=== PATIENT | female | born 1945 | race Caucasian/White ===

== ENCOUNTER 2022-09-23 07:54 | Outpatient (CLI) | payer MEDICARE, BC, SELFPAY ==
[2022-09-23 08:45] LABS: Chloride* 111 mmol/L (96-114); Sodium* 143 mmol/L (135-149)
[2022-09-23 08:46] LABS: Potassium* 4.6 mmol/L (3.6-5.1)
[2022-09-23 08:47] LABS: Cholesterol* 148 mg/dL (90-199)
[2022-09-23 08:48] LABS: Alanine Aminotransferase* 15 U/L (4-35); Alkaline Phosphatase* 72 U/L (40-150); Aspartate Amino Transferase* 22 U/L (12-35); Bilirubin Total* 0.7 mg/dL (0.1-1.5); Blood Urea Nitrogen* 13 mg/dL (7-30); Carbon Dioxide* 28 mmol/L (20-32); Creatinine* 0.7 mg/dL (0.5-1.5); Estimated Glomerular Filt Rate 89 ml/min; Glucose* 92 mg/dL (60-115); Total Protein* 6.9 g/dL (6.0-8.3); Triglycerides* 109 mg/dL (40-149)
[2022-09-23 08:49] LABS: Calcium* 8.7 mg/dL (8.4-10.6); HDL Cholesterol* 65 mg/dL (>=50); LDL Cholesterol Calculated 61 mg/dL (<100)
[2022-09-25 21:48] LABS: Vitamin D 25 Hydroxy* 60 ng/mL (30-80)
== END 2022-09-23 07:55 | disposition home or self-care (01) ==
LOC: NFLDREF 07:54
PROVIDERS: PCP Family Medicine; Visit Provider Family Medicine
DX: Z00.00 Encounter for general adult medical examination without abnormal findings (principal); E78.5 Hyperlipidemia, unspecified; E66.9 Obesity, unspecified; I25.10 Atherosclerotic heart disease of native coronary artery without angina pectoris; M81.0 Age-related osteoporosis without current pathological fracture
CPT/HCPCS: 80053; 80061; 82306

== ENCOUNTER 2022-11-12 11:17 | Outpatient (CLI) | payer MEDICARE, BC, SELFPAY ==
--- NOTE | 2022-11-12 11:30 | CRLHL7_ITS ---
For Patients: As a result of the Cures Act, medical imaging exams and procedure reports are released immediately into your electronic medical record. You may view this report before your referring provider. If you have questions, please contact your health care provider. BILATERAL SCREENING MAMMOGRAM WITH COMPUTER-AIDED DETECTION AND TOMOSYNTHESIS TECHNIQUE: CC and MLO views were obtained. These mammographic images have been obtained using full-field digital technique. These mammographic images were interpreted with the benefit of computer-aided detection. Breast tomosynthesis was used in this interpretation. COMPARISON FILM: 11/06/21, 10/03/20, 09/23/19. FINDINGS: There are scattered areas of fibroglandular density. IMPRESSION: There is no radiographic evidence for malignancy. ASSESSMENT: BI-RADS Category 1: Negative RECOMMENDATION: Routine screening mammogram in 1 year. A lay language report of this examination will be provided to the patient. VISHNU SANCHEZ M.D. Diagnostic Radiologist [email or web address] MOSHE/evelyn Transcribed: 11/12/2022, 2:[address]/Dictated by: Vishnu Sanchez MD @ 11/12/2022 12:43:00 PM (Electronically Signed)
== END 2022-11-12 11:18 | disposition home or self-care (01) ==
LOC: MAMMO 11:18
PROVIDERS: PCP Family Medicine; Visit Provider Family Medicine
DX: Z12.31 Encounter for screening mammogram for malignant neoplasm of breast (principal)
CPT/HCPCS: 77063; 77067

== ENCOUNTER 2022-12-24 08:03 | Outpatient (CLI) | payer MEDICARE, BC, SELFPAY | END 2022-12-24 08:04 | disposition home or self-care (01) | LOC: NFLDREF 21:37 | PROVIDERS: PCP Family Medicine; Referring Provider Family Medicine; Visit Provider Family Medicine | DX: I25.10 Atherosclerotic heart disease of native coronary artery without angina pectoris (principal); Z79.1 Long term (current) use of non-steroidal anti-inflammatories (NSAID) | CPT/HCPCS: 80053 ==

== ENCOUNTER 2023-03-26 12:28 | Outpatient (CLI) | payer MEDICARE, BC, SELFPAY | END 2023-03-26 12:29 | disposition home or self-care (01) | LOC: RAD 12:29 | PROVIDERS: PCP Family Medicine; Visit Provider Internal Medicine Cardiovascular Disease | DX: I25.10 Atherosclerotic heart disease of native coronary artery without angina pectoris (principal); I51.7 Cardiomegaly; I35.1 Nonrheumatic aortic (valve) insufficiency; I34.0 Nonrheumatic mitral (valve) insufficiency; I07.1 Rheumatic tricuspid insufficiency | CPT/HCPCS: 93306 ==

== ENCOUNTER 2023-10-10 07:55 | Outpatient (CLI) | payer MEDICARE, BC, SELFPAY ==
--- OUTSIDE RECORDS SUMMARY | 2023-10-10 12:23 | XMS_ITS | Clinical Summary ---
Author Name Unknown Organization [facility] Address [place], [place] [address] Care Team Providers Care Medical Supervisor Name Role Phone Oxana Johnson MD Primary Care Provider + Allergies Active Allergy Reactions Criticality Noted Date Comments Adhesive Tape-Silicones Rash 10/07/2018 Mold *Unknown 10/13/2018 Medications Medication Sig Dispensed Refills Start Date End Date Status metoprolol tartrate (LOPRESSOR) 25 mg tablet Take 25 mg by mouth once daily. 0 09/15/2018 Active rosuvastatin (CRESTOR) 10 mg tablet Take 10 mg by mouth once daily. 0 09/15/2018 Active aspirin (ECOTRIN) 81 mg enteric coated tablet Take 81 mg by mouth once daily with a meal. 0 Active nitroglycerin (NITROSTAT) 0.4 mg sublingual tabletIndications:Altaf nary artery disease, angina presence unspecified, unspecified vessel or lesion type, unspecified whether chinik or transplanted heart Place 1 tablet under the tongue every 5 minutes if needed. 25 tablet 0 10/07/2018 Active coenzyme q10 100 mg capIndications:Hyperli pidemia, unspecified hyperlipidemia type Take 1 capsule by mouth 2 times daily. Recommend Qunol brand 0 10/08/2018 Active isosorbide mononitrate (IMDUR) 30 mg extended release tablet 24 HourIndications:Palafox ry artery disease TAKE 1/2 TABLET (15 MG) BY MOUTH ONCE DAILY. 45 Tablet 2 07/09/2022 Active Active Problems Problem Noted Date Diagnosed Date Nasal congestion 04/18/2023 Chronic back pain 04/18/2023 Obesity (BMI 30.0-34.9) 03/17/2020 Mixed hyperlipidemia 01/22/2019 Ulcerative colitis 08/09/2010 Overview: Overview: Ulcerative colitis NOS Nonrheumatic aortic valve insufficiency Non-rheumatic mitral regurgitation Chest pain Abnormal cardiovascular stress test Coronary artery disease Immunizations Name Administration Dates Next Due COVID-19 vaccine ([employer] 30mcg/0.3mL) PF, MDV 10/19/2020,09/28/2020 Influenza, High-dose Inactivated 07/29/2018,06/25,10/02/2016 Influenza, IIV3 (Age 6-35 mos) 06/22/2013 Influenza, IIV3 (Age >=3 years) 06/05/2010 Pneumococcal Poly,23-Valent (Pneumovax) 06/22/20 13 Pneumococcal conj 13-Valent (Prevnar 13) 017 Social History Tobacco Use Types Packs/Day Years Used Date Smoking Tobacco: Former Smokeless Tobacco: Never Tobacco Cessation:Counseling Given: Yes Alcohol Use Standard Drinks/Week Comments Yes 2 (1 standard drink = 0.6 oz pur e alcohol) PHQ-2 Answer Date Recorded PHQ-2 Score 0 10/24/2018 Social Connections Answer Date Recorded Frequency of Communication with Friends and Fami ly Not on file 08/25/2021 Financial Resource Strain Answer Date R ecorded Difficulty of Paying Living Expenses Not on file 08/25/2021 Difficulty of Paying Living Expenses Not on file 08/25/2021 Sex and Gender Information Value Date Recorded Sex Assigned at Not on file Gender Identity Not on file Sexual Orientation Not on file Obstetrics History Last Filed Vital Signs Vital Sign Reading Time Taken Comments Blood Pressure 100/60 03/17/2020 9:47 AM CDT Pulse 60 03/17/2020 9:47 AM CDT Temperature 36.4 ??C (97.5 ??F) 03/17/2020 9:47 AM CD T Respiratory Rate 12 10/08/2018 8:09 AM TALK SHOW HOST Oxygen Saturation 99% 03/17/2020 9:47 AM CDT Inhaled Oxygen Concentration - - Weight 80.3 kg (177 lb 0.5 oz) 03/17/2020 9:47 A M CDT Height 161 cm (5' 3.39) 03/17/2020 9:47 AM CDT Body Mass Index 30.98 03/17/2020 9:47 AM CDT Plan of Treatment Health Maintenance Due Date Last Done Comments Tdap 1956 Hepatitis C screening for ag e 18-79 1963 Tetanus booster 1965 Zoster (shingles) series for age 50+ (1 of 2) 1995 DEXA/DXA scan for age 65+ 2010 Medicare Wellness for age 65+ 2010 Depression screening for age 12+ 10/16/2019 10/16/19 19, 10/13/2018 BMI (ht and wt on same day) for age 18+ 03/17/2021 03/17/2020 COVID-19 vaccine series ( season) 2023 08/08/2021, 10/19/2020, 09/28/2020 Influenza for age 65+ 04/25/2023 07/29/2018 , 07/11/2017, 10/02/2016, Additional history exists Pneumococcal series for age 65+ Completed 7, 06/22/2013 Advance Directives Latest Code Status on File Code Status Date Activated Date Inactivated Comments Full Code 10/07/2018 11:26 AM 10/08/2018 5:12 PM Care Teams Medical Supervisor Relationship Specialty Start Date End Date Oxana Johnson MD [address] [place] [id number] PCP - General Family Practice 10/02/18
== END 2023-10-10 07:56 | disposition home or self-care (01) ==
LOC: NFLDREF 12:22
PROVIDERS: PCP Family Medicine; Referring Provider Family Medicine; Visit Provider Family Medicine
DX: E78.5 Hyperlipidemia, unspecified (principal); I10 Essential (primary) hypertension; I25.10 Atherosclerotic heart disease of native coronary artery without angina pectoris; M19.90 Unspecified osteoarthritis, unspecified site; Z79.1 Long term (current) use of non-steroidal anti-inflammatories (NSAID)
CPT/HCPCS: 80053; 80061

== ENCOUNTER 2023-11-14 09:47 | Outpatient (CLI) | payer MEDICARE, BC, SELFPAY ==
--- NOTE | 2023-11-14 10:15 | MM_ITS ---
Patient: EVER KRIS Facility:?[facility] Patient ID:?[id number] Site Patient ID:?[id number]. Site :?[id number] Study:?XRay-Breast Bilateral 3D-11/14/2023 10:32:05 AM Ordering Physician:Carl Final Report: BILATERAL SCREENING MAMMOGRAM WITH COMPUTER-AIDED DETECTION AND TOMOSYNTHESIS TECHNIQUE: CC and MLO views were obtained. These mammographic images have been obtained using full-field digital technique. These mammographic images were interpreted with the benefit of computer-aided detection. Breast Tomosynthesis was used in this interpretation. COMPARISON FILM: 11/12/2022, 11/06/2021, 10/03/2020. FINDINGS: There are scattered areas of fibroglandular density. IMPRESSION: There is no radiographic evidence for malignancy. ASSESSMENT: BI-RADS Category 2: Benign RECOMMENDATION: Routine screening mammogram in 1 year. A lay language report of this examination will be provided to the patient. Vishnu Power M.D. Diagnostic Radiologist [email or web address] DSM/sp R& Transcribed: 5:43 p.m. SP/Dictated by: Vishnu Power MD @ 11/14/2023 11:08:00 AM Signed by:?Vishnu Power MD @11/14/2023 8:19:14 PM (Electronic Signature)
== END 2023-11-14 09:48 | disposition home or self-care (01) ==
LOC: MAMMO 09:48
PROVIDERS: PCP Family Medicine; Visit Provider Family Medicine
DX: Z12.31 Encounter for screening mammogram for malignant neoplasm of breast (principal)
CPT/HCPCS: 77063; 77067

== ENCOUNTER 2023-11-28 09:33 | Outpatient (CLI) | payer MEDICARE, BC, SELFPAY ==
--- NOTE | 2023-11-28 10:49 | W.ANESCHARGE ---
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
== END 2023-11-28 09:34 | disposition home or self-care (01) ==
LOC: OP CLINIC 09:34
PROVIDERS: PCP Family Medicine; Visit Provider Internal Medicine
DX: Z86.010 Personal history of colon polyps (principal)
CPT/HCPCS: 00811; 45378; 88305; 99100; J2704

== ENCOUNTER 2024-02-18 08:33 | Outpatient (CLI) | payer MEDICARE, BC, SELFPAY ==
--- OUTSIDE RECORDS SUMMARY | 2024-02-18 08:35 | XMS_ITS | Clinical Summary ---
Author Organization [facility] Address [place], [place] [address] Care Team Providers Care Community Pharmacist Name Role Phone Oxana Johnson MD Primary [...] by mouth once daily with a meal. Active nitroglycerin (NITROSTAT) 0.4 mg sublingual tabletIndications:Altaf nary artery disease, angina presence unspecified, unspecified vessel or lesion type, unspecified whether chicken ranch or transplanted heart Place 1 tablet under the tongue every 5 minutes if needed. 25 tablet 10/07/2018 Active coenzyme q10 100 mg capIndications:Hyperli [...] Abnormal cardiovascular stress test Coronary artery disease Encounters Date Type Department Care Team Description 11/28/2023 Lab Requisition [facility] [phone] Mateo Pa MD from Last 3 Months Immunizations Name Administration Dates Next Due COVID-19 vaccine ([employer]sensing 30mcg/0.3mL) PF, MDV 10/19/2020,09/28/2020 Influenza, High-dose Inactivated [...] T Respiratory Rate 12 10/08/2018 8:09 AM GENERAL MANAGER FOOD Oxygen Saturation 99% 03/17/2020 9:47 AM CDT Inhaled Oxygen Concentration - - Weight 80.3 kg (177 lb 0.5 oz) 03/17/2020 9:47 A M CDT Height 161 cm (5' 3.39) 03/17/2020 9:47 AM CDT Body Mass Index 30.98 03/17/2020 9:47 AM CDT Plan of Treatment Upcoming Encounters Date Type Department Care Team (Late st Contact Info) Description 02/18/2024 9:00 AM CDT Ancillary Procedure [facility] [address] [place] [address] Health Maintenance Due Date Last Done Comments [...] 08/08/2021, 10/19/2020, 09/28/2020 Influenza for age 65+ 04/25/2024 07/29/2018 , 07/11/2017, 10/02/2016, Additional history exists Pneumococcal series for age 65+ Completed 7, 06/22/2013 Procedures Procedure Name Priority Date/Time Associated Diagnosis Comments LAB TRACKING EVENT Routine 11/28/2023 10 :35 AM CDT PATH TISSUE EXAM Routine 11/28/2023 10:3 5 AM CDT from Last 3 Months Results * LAB TRACKING EVENT (11/28/2023 10:35 AM CDT) Other (Other) Client Collect / Unknown 11/28/2023 10:35 AM CDT 11/28/2023 10:12 PM CDT Mateo Pa MD LAB BILL ONLY [facility] [address] [place] [address], * PATH TISSUE EXAM (11/28/2023 10:35 AM CDT) Case Report Pathology Report ?Case: [id number] ? Authorizing Provider: ??Mateo Pa MD ?Collected: ? 11/28/2023 1035 ? Ordering Location: ? [facility] ?Received: ?11/29/2023628 ? Pathologist: ? Yessy, Preston Bridges, ? MD ? Specimen: ? 12/01/2023 11:[address] [facility] Final Diagnosis A) COLON, RANDOM, BIOPSY: 1. Inactive chronic colitis consistent with ulcerative colitis 2. Negative for dysplasia 12/01/2023 11:01 AM CDT [facility] ENTRAL LABORATORY Clinical Information 78-year-old woman with a history of idiopathic inflammatory bowel disease. 12/01/2023 11:[address] [facility] Gross Description A) Received in formalin are 3 talley mucosal fragments ranging from 1 mm to 4 mm in greatest dimension, which are entirely submitted in one cassette. It is labeled with the patient's name and designated random colonic biopsies. Diana Marquis 11/29/2023 9:33 AM 12/01/2023 11:[address] [facility] Microscopic Description The final diagnosis is based on microscopic examination of appropriate sections of all specimens. 12/01/2023 11:[address] Additional [facility] - [address] [place] [address] [place] [address] 12/01/2023 11:01 AM CDT [facility] Other 11/28/2023 10:3 5 AM CDT 11/29/2023 6:29 AM CDT Mateo Pa MD PATHOLOGY/CYTOLOGY [facility] [address] [place] [address], from Last 3 Months Advance Directives * Full Code (Latest Code Status on File) Date Activated Date Inactivated Comments 10/07/2018 11:26 AM 10/08/2018 5:12 PM Care Teams Community Pharmacist Relationship Specialty Start Date End Date Oxana Johnson MD [address] [place] [address] PCP - General Family Practice 10/02/18
== END 2024-02-18 08:34 | disposition home or self-care (01) ==
LOC: RAD 08:34
PROVIDERS: PCP Family Medicine; Visit Provider Internal Medicine Cardiovascular Disease
DX: I35.1 Nonrheumatic aortic (valve) insufficiency (principal); I51.7 Cardiomegaly
CPT/HCPCS: 93306

== ENCOUNTER 2024-11-24 07:38 | Outpatient (CLI) | payer MEDICARE, BC, SELFPAY | END 2024-11-24 07:39 | disposition home or self-care (01) | LOC: NFLDREF 11-27 17:13 | PROVIDERS: PCP Family Medicine; Referring Provider Family Medicine; Visit Provider Family Medicine | DX: I10 Essential (primary) hypertension (principal); E78.2 Mixed hyperlipidemia; M81.0 Age-related osteoporosis without current pathological fracture | CPT/HCPCS: 80053; 80061; 82306 ==

== ENCOUNTER 2024-12-02 14:39 | Outpatient (CLI) | payer MEDICARE, BC, SELFPAY ==
--- NOTE | 2024-12-02 15:00 | CRLHL7_ITS ---
For Patients: As a result of the Century Cures Act, medical imaging exams and procedure reports are released immediately into your electronic medical record. You may view this report before your referring provider. If you have questions, please contact your health care provider. INDICATION: BILATERAL SCREENING MAMMOGRAM, ASYMPTOMATIC 79 Y/O FEMALE COMPARISON: Baseline TECHNIQUE: CC and MLO views were obtained. These mammographic images have been obtained using full-field digital technique. These mammographic images were interpreted with the benefit of computer aided detection and tomosynthesis. BREAST COMPOSITION: The breasts are almost entirely fatty. FINDINGS: No suspicious findings. ASSESSMENT: BI-RADS 1 Negative RECOMMENDATION: Annual screening mammogram. A lay language report of this examination will be provided to the patient. Dictated by: Vishnu Power MD @ 12/03/2024 10:20:05 (Electronically Signed)
== END 2024-12-02 14:40 | disposition home or self-care (01) ==
LOC: MAMMO 14:40
PROVIDERS: PCP Family Medicine; Visit Provider Family Medicine
DX: Z12.31 Encounter for screening mammogram for malignant neoplasm of breast (principal)
CPT/HCPCS: 77063; 77067

== ENCOUNTER 2025-03-02 08:35 | Outpatient (CLI) | payer MEDICARE, BC, SELFPAY | END 2025-03-02 08:36 | disposition home or self-care (01) | LOC: RAD 08:35 | PROVIDERS: PCP Family Medicine; Visit Provider Internal Medicine Cardiovascular Disease | DX: I35.1 Nonrheumatic aortic (valve) insufficiency (principal); I07.1 Rheumatic tricuspid insufficiency | CPT/HCPCS: 93306 ==

== ENCOUNTER 2025-07-07 08:20 | Emergency (ER) | payer MEDICARE, BC, SELFPAY ==
--- OUTSIDE RECORDS SUMMARY | 2025-07-07 08:22 | XMS_ITS | Clinical Summary ---
Author Organization [facility] Address [address] [place] [id number] Care Team Providers Care Charging Operator Name Role Phone Oxana Johnson MD Primary Care Provider + Allergies Active Allergy Reactions Criticality Noted Date Comments Adhesive Tape-Silicones Rash 10/07/2018 Mold *Unknown 10/13/2018 Medications metoprolol tartrate (LOPRESSOR) 25 mg tablet Take 25 mg by mouth once daily. 0 9 Active rosuvastatin (CRESTOR) 10 mg tablet Take 10 mg by mouth once daily. 0 9 Active aspirin (ECOTRIN) 81 mg enteric coated tablet Take 81 mg by mouth once daily with a meal. Active nitroglycerin (NITROSTAT) 0.4 mg sublingual tabletIndications: Coronary artery disease, angina presence unspecified, unspecified vessel or lesion type, unspecified whether [place]aim[place] or transplanted heart Place 1 tablet under the tongue every 5 minutes if needed. 25 tablet 9 Active coenzyme q10 100 mg capIndications:Hyp erlipidemia, unspecified hyperlipidemia type Take 1 capsule by mouth 2 times daily. Recommend Qunol brand 0 9 Active isosorbide mononitrate (IMDUR) 30 mg extended release tablet 24 HourIndications:Co ronary artery disease TAKE 1/2 TABLET (15 MG) BY MOUTH ONCE DAILY. 45 Tablet 2 2 Active Active Problems Problem Noted Date Diagnosed Date Nasal congestion 04/18/2023 Chronic back pain 04/18/2023 Obesity (BMI 30.0-34.9) 03/17/2020 Mixed hyperlipidemia 01/22/2019 Ulcerative colitis 08/09/2010 Overview (10/07/2018): Overview: Ulcerative colitis NOS Nonrheumatic aortic valve insufficiency Non-rheumatic mitral regurgitation Chest pain Abnormal cardiovascular stress test Coronary artery disease Encounters Date Type Department Care Team Description 05/26/2025 10:30 AM CDT Office Visit [facility] [address] [place] [address] Roya Joshi MD from Last 3 Months Immunizations Immunization Administration Dates Next Due COVID-19 vaccine ([employer] 30mcg/0.3mL) ALEJANDRA ZAPATA 10/19/2020,09/28/2020 Influenza, High-dose Inactivated 07/29/2018,06/25,10/02/2016 Influenza, IIV3 [...] Paying Living Expenses Not on file 08/25/2021 Comments No Sex and Gender Information Value Date Recorded Sex Assigned at Not on file 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 Gender Identity Not on file Sexual Orientation Not on file Obstetrics History Last Filed Vital Signs Vital Sign Reading Time Taken Comments Blood Pressure 141/62 06/02/2025 11:02 AM CDT Pulse 54 06/02/2025 11:01 AM CDT Temperature 36.4 C (97.5 F) 03/17/2020 9:47 AM CDT Respiratory Rate 12 10/08/2018 8:09 AM OPTICAL GOODS WORKER Oxygen Saturation 97% 06/02/2025 11:01 AM CDT Inhaled Oxygen Concentration - - Weight 88 kg (194 lb) 06/02/2025 11:01 AM CDT Height 160 cm (5' 3) 06/02/2025 11:01 AM CDT Body Mass Index 34.37 06/02/2025 11:01 AM CDT Plan of Treatment Health Maintenance Due Date Last Done Comments Tetanus booster 1956 Zoster (shingles) series for age 50+ (1 of 2) 1995 DEXA/DXA scan for age 65+ 2010 Medicare Wellness for age 65+ 2010 Depression screening for age 12+ 10/16/2019 10/16/2018, 10/13/2018 RSV vaccine for adults or (1 - 1-dose 75+ series) 2020 Influenza Vaccine (#1) 2025 8, 07/11/2017, 10/02/2016, Additional history exists BMI (ht and wt on same day) for age 18+ 05/26/2026 05/26/2025, 03/17/2020 Pneumococcal series for age 50+ Completed 10/02/2016, 06/22/2013 Hepatitis B series for 19+ Aged Out N o longer eligible based on patient's age to complete this topic Insurance MEDICARE PART B HB ONLY MEDICARE PART A HB ONLY [employer] [place] [employer] [place] MR PB ONLY Advance Directives * Full Code (Latest Code Status on File) Date Activated Date Inactivated Comments 10/07/2018 11:26 AM 10/08/2018 5:12 PM Care Teams Charging Operator Relationship Specialty Start Date End Date Oxana Johnson MD [address] [place] [address] PCP - General Family Practice 10/02/18
[2025-07-07 08:30] VITALS: BP 158/68; PULSE 69; RESP 18; TEMP 36.8; O2SAT 95; BMI 33.3
--- NOTE | 2025-07-07 08:48 | ED.GENADULT ---
HPI - General Adult General Date Seen: 07/07/25 Chief complaint: Urogenital Problems, Female Stated complaint: Blood in urine Time Seen by Provider: 07/07/25 08:35 History of Present Illness HPI narrative: Patient is an 80-year-old woman who knows that she is generally healthy, past medical history is notable for high cholesterol, aortic regurgitation, some skin cancers, varicose veins and coronary artery disease. She has had 2 days of dysuria and hematuria, she wonders if she has a bladder infection. She does not have any flank pain. Has a little bit of low back pain which she says happens to her now and then and does not seem particularly unusual. No fevers or chills. As an aside, she mention that she feels like she is ?falling apart, she says that a couple weeks ago she noted a change in her hearing everything sounds little bit muffled on both sides. She does not have ear pain or any other neurologic changes. She was not sure she should see her primary doctor or do something else about that, that is not really why she is here she just mentioned it during conversation. Related Data Home Medications ?Medication ?Instructions ?Recorded ?Confirmed aspirin 81 mg tablet,delayed 81 mg PO DAILY 03/29/22 05/26/25 release cholecalciferol (vitamin D3) 125 5,000 unit PO DAILY 04/04/22 05/26/25 mcg (5,000 unit) capsule coenzyme Q10 100 mg capsule mg PO BID 04/04/22 05/26/25 multivitamin with iron (Daily 1 tab PO QDAY 04/04/22 05/26/25 Multiple Vitamins with Iron tablet) cetirizine 10 mg tablet (24Hour 10 mg PO QDAY PRN 04/18/23 05/26/25 Allergy) Previous Rx's ?Medication ?Instructions ?Recorded fluticasone propionate 50 2 spray intranasal QDAY #10 mL 11/26/24 mcg/actuation nasal spray,suspension (Flonase Allergy Relief) isosorbide mononitrate 30 mg 15 mg (1/2 x 30 mg) PO DAILY #90 11/26/24 tablet,extended release 24 hr tabs metoprolol tartrate 25 mg tablet 25 mg PO DAILY #90 tabs 11/26/24 rosuvastatin 10 mg tablet 10 mg PO DAILY #90 tabs 11/26/24 cephalexin 500 mg capsule 500 mg PO BID #14 caps 07/07/25 Allergies Allergy/AdvReac Type Severity Reaction Status Date / Time adhesive Allergy Unknown Verified 05/26/25 10:15 latex AdvReac Mild skin Verified 05/26/25 10:15 irritation Molds & Smuts Allergy Intermediate mild Uncoded 05/26/25 10:15 PFSH REPLACED BY [facility] Medical History Ulcerative colitis (1994) ?K51.90 - Ulcerative colitis, unspecified, without complications (ICD-10) 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 ?C44.1221 - Squamous cell carcinoma of skin of right upper eyelid, including canthus (ICD-10) Osteoarthritis of left shoulder ?M19.012 - Primary osteoarthritis, left shoulder (ICD-10) Osteoarthritis (arthritis due to wear and tear of joints) ?M19.90 - Unspecified osteoarthritis, unspecified site (ICD-10) NSAID long-term use ?Z79.1 - jail (current) use of non-steroidal anti-inflammatories (NSAID) (ICD-10) Nasal congestion ?R09.81 - Nasal congestion (ICD-10) Obesity (BMI 30.0-34.9) ?E66.9 - Obesity, unspecified (ICD-10) Aortic regurgitation (~2020) ?I35.1 - Nonrheumatic aortic (valve) insufficiency (ICD-10) Squamous cell carcinoma of right lower leg (2018) ?C44.722 - Squamous cell carcinoma of skin of right lower limb, including hip (ICD-10) Right thyroid nodule (2016) ?E04.1 - Nontoxic single thyroid nodule (ICD-10) 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) ?C50.919 - Malignant neoplasm of unspecified site of unspecified female breast (ICD-10) Osteoporosis (09/2021) ?M81.0 - Age-related osteoporosis without current pathological fracture (ICD-10) Hyperlipidemia ?E78.5 - Hyperlipidemia, unspecified (ICD-10) History of severe acute respiratory syndrome coronavirus 2 (SARS-CoV-2) disease (03/2021) ?Z86.16 - Personal history of COVID-19 (ICD-10) Surgical History History of tubal ligation (1983) ?Z98.51 - Tubal ligation status (ICD-10) History of lumpectomy (2017) ?Z98.890 - Other specified postprocedural states (ICD-10) History of colonoscopy ?Z98.890 - Other specified postprocedural states (ICD-10) History of bilateral cataract extraction (02/2021) ?Z98.41 - Cataract extraction status, right eye (ICD-10) ?Z98.42 - Cataract extraction status, left eye (ICD-10) Abnormal coronary angiogram (10/07/18) ?R93.1 - Abnormal findings on diagnostic imaging of heart and coronary circulation (ICD-10) Family History Father Myocardial infarction, Onset Age: 67 Brother Coronary artery disease H/O heart artery stent Mother Rheumatoid arthritis 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: , 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, 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 exercise involving walking- 3-4 /week weights silver sneakers or walkings non-smoker social drinker- 2/month What is your current living situation?: I presently have a place to live Problems where you live: no known problems In the past 12 months, utilities in danger of being shut off: no In past 12 months, lack of transportation kept you from medical appts, meetings, work, or getting things needed for daily living: no In the past 12 mos, have been you worried that your food would run out before you had money to buy more?: never true In the past 12 mos, the food you bought just didn't last and you didn't have money to buy more?: never true Smoking Status: Former smoker What tobacco products do you use: cigarettes Smoking quit date/years: >15 years ago Do you use any of these nicotine containing products: None Second hand tobacco smoke exposure: No How often do you have a drink containing alcohol: 2-4 times a month AUDIT-C Alcohol total score: 2 Non-prescribed substance use: denies use How often does anyone, including family, friends and others, physically hurt you: never How often does anyone, including family, friends and others, insult or talk down to you: never How often does anyone, including family, friends and others, threaten you with harm: never How often does anyone, including family, friends and others, scream or curse at you: never Exam Narrative: Exam Narrative: Vital signs reviewed In general, an alert, nontoxic elderly woman. Very pleasant, well-appearing. 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 Head: Normocephalic, atraumatic. Eyes: Sclera clear. Pupils equal and reactive. ENT: Mucous membranes moist. TMs are normal bilaterally, canals normal. Neck: Supple without adenopathy. Heart: Regular rate and rhythm without murmur. Lungs: Clear. No increased work of breathing, crackles or wheezes. Abdomen: Soft, nontender to palpation. No CVA tenderness. Extremities: Well perfused, pulses intact. No significant edema. Neurologic: Alert, conversant. Speech fluent, face symmetric. Moves all extremities equally. Skin: Warm, dry well perfused. Affect: Normal. Const: Vital Signs, click to edit/add: Vital Signs - 24 hr 07/07/25 08:30 Temperature 98.2 F Pulse Rate [Pulse Oximeter] 69 Respiratory Rate 18 Blood Pressure [Ri ght Upper Arm] 158/68 H Pulse Oximetry 95 Oxygen Delivery Me thod Room Air Course Course ED Course: Patient presents with symptoms suggestive of possible urinary tract infection, other diagnostic considerations would include pyelonephritis, atrophic vaginitis, bladder stones or cancer, kidney stones, renal cancer, among others. With regard to her hearing, I suggested that we have her follow-up with ENT and get some audiology testing done to start looking into that. Will start with a urinalysis here if that strongly suggestive of urinary tract infection then I think we can simply treat and have her follow up. It if only blood, then she will likely need further evaluation. Analysis shows greater than 100 red blood cells, 10-25 white blood cells. With symptomology, this likely represents urinary tract infection. I have prescribed Keflex b.i.d. for 7 days. Return for worsening or new symptoms such as fever, flank pain, chills, vomiting. Primary care follow-up if symptoms do not resolve with treatment. Culture pending. Also gave her the phone number for follow-up with ENT regarding her hearing. Vital Signs Vital signs: Initial Vital Signs Temperature 98.2 F 07/07/25 08:30 Temperature Source Temporal Artery Scan 07/07/25 08:30 Pulse Rate 69 07/07/25 08:30 Respiratory Rate 18 07/07/25 08:30 Blood Pressure 158/68 H 07/07/25 08:30 Blood Pressure Mean 98 07/07/25 08:30 Blood Pressure Position Sitting 07/07/25 08:30 Pulse Oximetry 95 07/07/25 08:30 Oxygen Delivery Method Room Air 07/07/25 08:30 Vital Signs Temperature 98.2 F 07/07/25 08:30 Pulse Rate 69 07/07/25 08:30 Respiratory Rate 18 07/07/25 08:30 Blood Pressure 158/68 H 07/07/25 08:30 Pulse Oximetry 95 07/07/25 08:30 Oxygen Delivery Method Room Air 07/07/25 08:30 Temperature 98.2 F 07/07/25 08:30 Pulse Rate 69 07/07/25 08:30 Respiratory Rate 18 07/07/25 08:30 Blood Pressure 158/68 H 07/07/25 08:30 Pulse Oximetry 95 07/07/25 08:30 Oxygen Delivery Method Room Air 07/07/25 08:30 Medical Decision Making Lab Data Labs: Lab Results 07/07/25 Range/Units 09:00 Urine Color Red A (Yellow) Urine Appearance Turbid A (Clear) Urine pH 7.0 (5.0-8.5) Ur Specific [place] 1.020 (1.000-1.030) Urine Protein 3+ A (Negative) Urine Glucose (UA) Negative (Negative) Urine Ketones Negative (Negative) Urine Blood 3+ A (Negative) Urine Nitrite Negative (Negative) Urine Bilirubin Negative (Negative) Urine Urobilinogen 0.2 (0.2-1.0) Ur Leukocyte Esterase Negative (Negative) Urine RBC >100 A (0-2) Urine WBC 10-25 A (0-5) Ur Squamous Epith Cells Few (None-Few) Urine Bacteria Few A (None) Discharge Plan Discharge Clinical Impression: Urinary tract infection Patient Disposition: Home, Self-Care Condition: Stable Instructions: Urinary Tract Infection in Older Adults (ED) Additional Instructions: Your urinalysis today suggest that you probably have a urinary tract infection. Take the Keflex, antibiotic, as prescribed. Symptoms should improve over the next couple of days. If you continue to have blood in your urine, you should follow-up with your primary doctor. Return to the ER at any time if you have new symptoms such as fevers, chills, vomiting, or other worsening. As we discussed earlier, I would recommend that you see ENT regarding your hearing. You can call [phone] to schedule an appointment with Dr. Danielle. Prescriptions: New cephalexin 500 mg capsule 500 mg PO BID Qty: 14 0RF No Action isosorbide mononitrate 30 mg tablet extended release 24 hr 15 mg PO DAILY Qty: 90 3RF metoprolol tartrate 25 mg tablet 25 mg PO DAILY Qty: 90 3RF rosuvastatin 10 mg tablet 10 mg PO DAILY Qty: 90 3RF fluticasone propionate [Flonase Allergy Relief] 50 mcg/actuation spray,suspension 2 spray intranasal QDAY Qty: 10 12RF Rx Instructions: administer into each nostril aspirin 81 mg tablet,delayed release (DR/EC) 81 mg PO DAILY cholecalciferol (vitamin D3) 125 mcg (5,000 unit) capsule 5,000 unit PO DAILY multivitamin with iron [Daily Multiple Vitamins/Iron] Tablet 1 tab PO QDAY coenzyme Q10 100 mg capsule PO BID cetirizine [24Hour Allergy] 10 mg tablet 10 mg PO QDAY PRN Follow Up/Referrals: Oxana Johnson MD [Primary Care Provider, Family Practice] Stand Alone Forms: [employer] [facility] Info Instructions
[2025-07-07 09:41] LABS: Appearance Urine Turbid (Clear)
== END 2025-07-07 10:05 | disposition home or self-care (01) ==
PROVIDERS: Emergency Provider Emergency Medicine; PCP Family Medicine
DX: N39.0 Urinary tract infection, site not specified (principal)
CPT/HCPCS: 81001; 87086; 99283; 99284

== ENCOUNTER 2025-07-20 09:02 | Outpatient (CLI) | payer MEDICARE, BC, SELFPAY | END 2025-07-20 09:03 | disposition home or self-care (01) | LOC: NFLDREF 07-26 10:10 | PROVIDERS: PCP Family Medicine; Referring Provider Family Medicine; Visit Provider Obstetrics & Gynecology | DX: R33.9 Retention of urine, unspecified (principal) | CPT/HCPCS: 87086 ==